=== PATIENT | female | born 1955 | race Caucasian/White ===

== ENCOUNTER 2021-03-21 12:16 | Day surgery (SDC) | payer BC ==
[~2021-03-21] VITALS: Ht 167.6 cm; Wt 85.5 kg
[2021-03-21] VITALS (8 sets, daily range): BP systolic 139–167; BP diastolic 69–98
--- NOTE | 2021-03-21 13:37 | NUR ---
Patient seen and assessed by provider. Patient will be transfered to short stay for out patient procedure to room 316A.
[2021-03-21] MEDS ORDERED: heparin 1,000unit/ml 10ml vial 10 ML ONE (14:25)
[2021-03-21] MEDS ORDERED: midazolam 1 mg/ML 2ml injection ONE (14:26)
[2021-03-21] MEDS ORDERED: LIDOcaine 1%/PF 5ML 10 MG/ML VIAL ONE (14:26)
[2021-03-21] MEDS ORDERED: fentaNYL/PF 50MCG/1 ML 2ML syringe ONE (14:26)
[2021-03-21] MEDS ORDERED: LANTUS SQ (14:40)
[2021-03-21] MEDS ORDERED: AMLO10TA48 PO (14:40)
[2021-03-21] MEDS ORDERED: VANC1VIA35 IV (14:40)
[2021-03-21] MEDS ORDERED: HYDR-4069 PO (14:40)
[2021-03-21] MEDS ORDERED: ATOR40TA PO (14:40)
[2021-03-21] MEDS ORDERED: POLY119P2 PO (14:40)
[2021-03-21] MEDS ORDERED: CEFE2FRO IV (14:40)
--- NOTE | 2021-03-21 17:20 | NUR ---
CALLED JOANNA TO GIVE PATIENT REPORT TO RECEIVING NURSE, UNABLE TO LOCATE PER BLACK TOPPER, REPORT GIVEN TO BLACK TOPPER WITH CALL BACK NUMBER IF QUESTIONS CAME UP .
--- NOTE | 2021-03-21 18:20 | NUR ---
CALLED AND SPOKE WITH [employer] PARTNER (HAYDEE) WITH [facility], PATIENT PLACED ON SCHEDULE FOR [facility] FROM HOSPITAL TO TRANSFER TO [facility].
--- NOTE | 2021-03-21 19:00 | NUR ---
CALLED AND SPOKE WITH [facility] TO INQUIRE ABOUT CAR HOSTLER TIME. PATIENT TO BE PICKED UP AT 1999 FOR TRANSFER TO [facility].
--- NOTE | 2021-03-21 19:05 | NUR ---
[facility] CALLED TO CANCEL TRANSPORTATION TO [facility], [facility] IS ALREADY SCHEDULED TO TRANSFER. THIS INFORMATION RELAYED TO NURSING DRAWER LINER, JEFFREY WALKER
--- NOTE | 2021-03-21 20:00 | NUR ---
PATIENT PICKED UP BY [facility] FOR TRANSPORTATION TO [facility]
== END 2021-03-21 20:00 ==
LOC: ER 12:17 → MED 3N 13:30 → SSTAY O 13:30
PROVIDERS: ATTEND Radiology Diagnostic Radiology
DX: E11.22 Type 2 diabetes mellitus with diabetic chronic kidney disease (principal); I12.0 Hypertensive chronic kidney disease with stage 5 chronic kidney disease or end stage renal disease; N18.6 End stage renal disease; E78.00 Pure hypercholesterolemia, unspecified; F32.9 Major depressive disorder, single episode, unspecified; M19.90 Unspecified osteoarthritis, unspecified site; M86.8X7 Other osteomyelitis, ankle and foot; Z88.0 Allergy status to penicillin; Z79.4 Long term (current) use of insulin; Z79.899 Other long term (current) drug therapy
CPT/HCPCS: 36558; 76937; 77001; 99152; 99153; 99285; C1750; C1769; C1894; J1644; J2250; J3010; A9270

== ENCOUNTER 2021-03-22 23:22 | Inpatient (IN) | payer BC ==
[~2021-03-22] VITALS: Ht 165.1 cm; Wt 118.2 kg
[~2021-03-22 23:22] MED LIST: AMLO10TA48 PO; ATOR40TA PO; CEFE2FRO IV; HYDR-4069 PO; LANTUS SQ; POLY119P2 PO; VANC1VIA35 IV
[2021-03-22] MEDS ORDERED: iohexol 350MG/ML 100ml bottle IV ONE (23:32)
[2021-03-22 23:50] LABS: BASOPHILS # (AUTO) 0.1 X10'3 (0-0.2); BASOPHILS % (AUTO) 0.8 % (0-1); EOSINOPHILS # (AUTO) 0.6 X10'3 (0-0.9); EOSINOPHILS % (AUTO) 6.2 % (0-6); HEMATOCRIT 30.2 % (35.0-45.0); HEMOGLOBIN 9.8 g/dl (12.0-16.0); LYMPHOCYTES % (AUTO) 10.2 % (21-51); MEAN CORPUSCULAR HEMOGLOBIN 28.4 PG (27.0-31.0); MEAN CORPUSCULAR HGB CONC 32.5 g/dL (33.0-36.5); MEAN CORPUSCULAR VOLUME 87.4 FL (78-98); MEAN PLATELET VOLUME 8.4 FL (7.4-10.4); MONOCYTES # (AUTO) 1.1 X10'3 (0-0.9); MONOCYTES % (AUTO) 10.7 % (2-12); NEUTROPHILS # (AUTO) 7.3 X10'3 (1.8-7.7); NEUTROPHILS % (AUTO) 72.1 % (42-75); PLATELET COUNT 315 X10'3 (140-440); RED BLOOD COUNT 3.46 X10'6 (4.20-5.60); WHITE BLOOD COUNT 10.2 X10'3 (4.5-11.0)
[2021-03-22 23:52] LABS: ALANINE AMINOTRANSFERASE 15 U/L (12-78); ALBUMIN 1.9 G/DL (3.4-5.0); ALBUMIN/GLOBULIN RATIO 0.4 (1.1-1.5); ALKALINE PHOSPHATASE 144 IU/L (46-116); ANION GAP 7 (8-16); ASPARTATE AMINO TRANSFERASE 13 U/L (10-37); BILIRUBIN,TOTAL 0.3 MG/DL (0.1-1.0); BLOOD UREA NITROGEN 42 MG/DL (7-18); BUN/CREATININE RATIO 9.7 (6.6-38.0); CALCIUM 8.6 MG/DL (8.5-10.1); CHLORIDE 109 MMOL/L (99-107); CREATININE 4.34 MG/DL (0.40-0.90); GLUCOSE 179 MG/DL (70-104); POTASSIUM 3.8 MMOL/L (3.5-5.1); SODIUM 144 MMOL/L (135-145); TOTAL CARBON DIOXIDE 27.7 MMOL/L (24-32); TOTAL PROTEIN 6.7 G/DL (6.4-8.2); eGFR 10 ML/MIN
[2021-03-23] MEDS ORDERED: magnesium hydroxide 30ml (MOM) UD suspension PO PRN (00:50)
[2021-03-23] MEDS ORDERED: bisacodyl 10mg suppository rectal RC PRN (00:50)
[2021-03-23] MEDS ORDERED: acetaminophen 325mg tablet PO PRN ×2 (00:50)
[2021-03-23] MEDS ORDERED: HYDROcodone/acetaminophen 5mg/325mg tablet PO PRN (00:50)
[2021-03-23] MEDS ORDERED: morphine 2 MG/ML inj. syringe IV PRN ×2 (00:50)
[2021-03-23] MEDS ORDERED: diphenhydrAMINE 25mg capsule PO PRN (00:50)
[2021-03-23] MEDS ORDERED: mag hydrox/Alum hydrox/simeth 30ml oral suspension PO PRN (00:50)
[2021-03-23] MEDS ORDERED: acetaminophen 650mg rectal suppository RC PRN (00:50)
[2021-03-23] MEDS ORDERED: ondansetron 4mg rapidly disintigrating tab PO PRN (00:50)
[2021-03-23] MEDS ORDERED: HYDROmorphone inj. 0.5 MG/0.5 ML DISP.SYRIN IV PRN (00:50)
[2021-03-23] MEDS ORDERED: HYDROcodone/acetaminophen 10/325mg tab PO PRN (00:50)
[2021-03-23] MEDS ORDERED: ondansetron/PF 4mg/2ml inj IV PRN (00:50)
[2021-03-23] MEDS ORDERED: glucagon, human recombinant 1mg kit SUBCUT PRN (00:55)
[2021-03-23] MEDS ORDERED: MESSAGE TO PHARMACY PO ONE (00:55)
[2021-03-23] MEDS ORDERED: dextrose 50%-water 50ml dispensing syringe IV PRN ×2 (00:55)
[2021-03-23] MEDS ORDERED: dextrose ORAL solution 15 GM/59 ML bottle PO PRN ×2 (00:55)
[2021-03-23 01:10] LABS: C-REACTIVE PROTEIN 9.47 MG/DL (0.0-0.5); FERRITIN 262 NG/ML (8-252); LACTATE DEHYDROGENASE 293 U/L (81-234)
[2021-03-23 01:53] LABS: PARTIAL THROMBOPLASTIN TIME 30 SECONDS (22-32)
[2021-03-23] MEDS: normal saline 1000ml 1,000 ML IV SCH (01:57)
[2021-03-23] MEDS ORDERED: hydrALAZINE 20mg/ml inj. IV PRN (02:00)
[2021-03-23 02:05] LABS: HEMOGLOBIN A1C 7.9 % (4.5-6.2)
[2021-03-23 02:19] LABS: CLARITY,URINE SLIGHTLY CLOUDY (Clear); COLOR,URINE YELLOW (Yellow); UA COLLECTION TYPE FOLEY CATH
[2021-03-23 02:20] LABS: GLUCOSE, URINE 100 mg/dl (Neg); KETONES,URINE NEGATIVE (Neg); PROTEIN,URINE >=1000 mg/dl (Neg)
[2021-03-23 02:21] LABS: LEUKOCYTE ESTERASE ,URINE SMALL (Neg); NITRITES, URINE NEGATIVE (Neg); OCCULT BLOOD,URINE TRACE-LYSED (Neg); UROBILINOGEN,URINE 0.2 E.U/dL (0.2-1.0)
[2021-03-23 02:25] LABS: RBC,URINE 0-2 /HPF (0-2); WBC,URINE TNTC /HPF (0-4)
[2021-03-23 02:26] LABS: BACTERIA,URINE NONE SEEN /HPF (Neg); SQUAMOUS EPITHELIAL CELL,UR NONE SEEN /LPF (FEW)
[2021-03-23] MEDS ORDERED: piperacillin/tazo 3.375gm/50ml 50 ML IV ONE (04:50)
[2021-03-23] MEDS ORDERED: vancomycin/NS 1 GM ADD-VANTAGE 250 ML IV ONE (04:50)
[2021-03-23] MEDS ORDERED: LIDOcaine 2% 10ml TOPICAL JELLY (Urojet) TP ONE (05:35)
[2021-03-23] MEDS: heparin, porcine 5000 units/ml vial SQ SCH ×2 (08:06→16:00)
[2021-03-23] MEDS: pantoprazole 40mg Tablet.DR PO SCH (08:13)
[2021-03-23] MEDS: docusate sod 100mg capsule PO SCH ×2 (08:14→20:32)
[2021-03-23] MEDS: CefTRIAXone/D5W-Rocephin 1gm 50 ML IV SCH ×2 (08:15→20:30)
[2021-03-23] MEDS ORDERED: potassium Cl 20 mEq SR tablet PO PRN ×2 (08:45)
[2021-03-23] MEDS ORDERED: magnesium 4gm in 100ml NS 100 ML IV PRN (08:45)
[2021-03-23] MEDS ORDERED: potassium Cl 40MEQ/1/2NS 520ml 520 ML IV PRN (08:45)
[2021-03-23] MEDS ORDERED: magnesium Cl slow-release 64mg tablet PO PRN (08:45)
[2021-03-23] MEDS: azithromycin/NS 500mg/250ml 250 ML IV SCH (09:07)
[2021-03-23] MEDS ORDERED: LORA10TA7 PO (10:15)
[2021-03-23] MEDS ORDERED: HYDR-3965 PO (10:15)
[2021-03-23] MEDS ORDERED: GABA300C PO (10:15)
[2021-03-23] MEDS ORDERED: ALBU18HF2 INH (10:15)
[2021-03-23] MEDS ORDERED: DIPH25TA27 PO (10:15)
[2021-03-23] MEDS ORDERED: PRAM177L28 TP (10:15)
[2021-03-23] MEDS ORDERED: DOCU100C40 PO (10:15)
[2021-03-23] MEDS ORDERED: INSU100V11 SQ (10:15)
[2021-03-23] MEDS ORDERED: SODIUM BICARB (10:15)
[2021-03-23] MEDS ORDERED: ONDA4TAB12 PO (10:15)
[2021-03-23] MEDS ORDERED: normal saline 1000ml 250 ML IV PRN (10:55)
[2021-03-23] MEDS ORDERED: EPOETIN ALFA-EPBX 20,000 UNIT/ML 1 ML MDV IV ONE (10:55)
[2021-03-23] MEDS ORDERED: heparin 1,000unit/ml 10ml vial 10 ML IV ONE (10:55)
[2021-03-23] MEDS ORDERED: heparin 1,000 units/ml 10ml inj HE ONE ×2 (11:00)
--- NOTE | 2021-03-23 13:46 | NUR ---
BREAK RN NOTES: VITAL SIGNS RECHECKED,CALL LIGHT WITHIN REACH,DENIES DISCOMFORT.
--- NOTE | 2021-03-23 14:46 | NUR ---
Patient in room ED 14. I have received report from JEFFREY Walters and had the opportunity to ask questions. Awaiting patient arrival on unit to assume patient care.
[2021-03-23 15:35] LABS: HEMATOCRIT 29.8 % (35.0-45.0); HEMOGLOBIN 9.8 g/dl (12.0-16.0); MEAN CORPUSCULAR HEMOGLOBIN 28.3 PG (27.0-31.0); MEAN CORPUSCULAR HGB CONC 32.8 g/dL (33.0-36.5); MEAN CORPUSCULAR VOLUME 86.3 FL (78-98); MEAN PLATELET VOLUME 8.1 FL (7.4-10.4); PLATELET COUNT 313 X10'3 (140-440); RED BLOOD COUNT 3.45 X10'6 (4.20-5.60); RED CELL DISTRIBUTION WIDTH 18.1 % (11.5-14.5); WHITE BLOOD COUNT 9.3 X10'3 (4.5-11.0)
[2021-03-23 18:00] VITALS: BP 156/71
--- NOTE | 2021-03-23 18:44 | NUR ---
Patient in room PCU 3020. I have received report from LYUDMILA MURPHY and had the opportunity to ask questions and assume patient care. Addendum: 03/23/21 at 1844 by Linda Mcdaniel RN Amended: Links added.
--- NOTE | 2021-03-23 18:44 | NUR ---
Problems reprioritized. Patient report given, questions answered & plan of care reviewed with Linda MURPHY.
[2021-03-23] MEDS: K and/or MAG REPLACEMENT MC SCH (20:00)
--- NOTE | 2021-03-23 20:10 | NUR ---
DIALYSIS COMPLETED PER rN. PT TOLERATED WELL. DROWSY, NO COMPLAINTS AT THIS TIME.
[2021-03-23] MEDS: lactobacillus rhamnosus 10,000 MMU CELLS/CAPSULE PO SCH (20:33)
[2021-03-23] MEDS ORDERED: temazepam 15mg capsule PO PRN (21:00)
[2021-03-23] MEDS: insulin glargine (Lantus) pen - multi-dose SQ SCH (21:04)
[2021-03-23 22:00] VITALS: BP 170/77
[2021-03-24] MEDS: heparin, porcine 5000 units/ml vial SQ SCH ×4 (01:14→23:25)
[2021-03-24 02:00] VITALS: BP 147/68
[2021-03-24 06:00] VITALS: BP 178/83
--- NOTE | 2021-03-24 06:37 | NUR ---
Problems reprioritized. Patient report given, questions answered & plan of care reviewed with LYUDMILA MURPHY. Addendum: 03/24/21 at 0638 by Linda Mcdaniel RN Amended: Links added.
--- NOTE | 2021-03-24 06:38 | NUR ---
Patient in room PCU 3020. I have received report from JEFFREY Mckeon and had the opportunity to ask questions and assume patient care.
[2021-03-24] MEDS: K and/or MAG REPLACEMENT MC SCH ×2 (08:00→20:00)
[2021-03-24] MEDS: docusate sod 100mg capsule PO SCH ×3 (08:00→20:59)
[2021-03-24 08:09] LABS: BASOPHILS % (AUTO) 0.4 % (0-1); EOSINOPHILS # (AUTO) 0.8 X10'3 (0-0.9); EOSINOPHILS % (AUTO) 6.4 % (0-6); HEMATOCRIT 32.2 % (35.0-45.0); HEMOGLOBIN 10.4 g/dl (12.0-16.0); LYMPHOCYTES # (AUTO) 1.5 X10'3 (1.1-4.8); LYMPHOCYTES % (AUTO) 11.3 % (21-51); MEAN CORPUSCULAR HEMOGLOBIN 28.1 PG (27.0-31.0); MEAN CORPUSCULAR HGB CONC 32.3 g/dL (33.0-36.5); MEAN PLATELET VOLUME 8.4 FL (7.4-10.4); MONOCYTES # (AUTO) 0.8 X10'3 (0-0.9); MONOCYTES % (AUTO) 5.8 % (2-12); NEUTROPHILS % (AUTO) 76.1 % (42-75); PLATELET COUNT 371 X10'3 (140-440); RED CELL DISTRIBUTION WIDTH 18.1 % (11.5-14.5); WHITE BLOOD COUNT 13.2 X10'3 (4.5-11.0)
[2021-03-24] MEDS: azithromycin/NS 500mg/250ml 250 ML IV SCH (08:11)
[2021-03-24] MEDS: CefTRIAXone/D5W-Rocephin 1gm 50 ML IV SCH (08:11)
[2021-03-24] MEDS: lactobacillus rhamnosus 10,000 MMU CELLS/CAPSULE PO SCH ×2 (08:12→21:00)
[2021-03-24] MEDS: pantoprazole 40mg Tablet.DR PO SCH (08:12)
[2021-03-24 08:21] LABS: ALANINE AMINOTRANSFERASE 15 U/L (12-78); ALBUMIN 1.8 G/DL (3.4-5.0); ALBUMIN/GLOBULIN RATIO 0.4 (1.1-1.5); ALKALINE PHOSPHATASE 155 IU/L (46-116); ANION GAP 9 (8-16); ASPARTATE AMINO TRANSFERASE 15 U/L (10-37); BILIRUBIN,TOTAL 0.3 MG/DL (0.1-1.0); BLOOD UREA NITROGEN 32 MG/DL (7-18); BUN/CREATININE RATIO 8.1 (6.6-38.0); C-REACTIVE PROTEIN 11.07 MG/DL (0.0-0.5); CALCIUM 8.7 MG/DL (8.5-10.1); CHLORIDE 107 MMOL/L (99-107); CHOL/HDL RATIO 2.7 (0.00-4.99); CHOLESTEROL 130 MG/DL (0-200); CREATININE 3.96 MG/DL (0.40-0.90); GLUCOSE 107 MG/DL (70-104); HDL CHOLESTEROL 49 MG/DL (35-60); LDL CHOLESTEROL 50 MG/DL (50-100); MAGNESIUM 1.9 MG/DL (1.5-2.4); PHOSPHORUS 4.6 MG/DL (2.3-4.5); POTASSIUM 4.5 MMOL/L (3.5-5.1); SODIUM 143 MMOL/L (135-145); TOTAL CARBON DIOXIDE 27.4 MMOL/L (24-32); TOTAL PROTEIN 6.8 G/DL (6.4-8.2); TRIGLYCERIDES 150 MG/DL (20-135); eGFR 11 ML/MIN
[2021-03-24 08:24] LABS: D-DIMER 10.01 MG/L FEU (0-0.50)
[2021-03-24] MEDS: insulin Lispro (HumaLOG) vial - multi-dose SQ SCH (08:31)
[2021-03-24] MEDS: diphenhydrAMINE 50 mg/ml inj IV PRN ×2 (08:32→21:02)
--- NOTE | 2021-03-24 10:18 | NUR ---
DM consult: Per consult pt with renal failure and right foot osteomyelitis. Per H&P pt with ESRD on HD, lot porter has been consulted, and pt on abx for osteomyelitis. Pt with T2DM with A1c 7.9%. Pt with ALOC on admit, A/O x 1 and confused per physical assessment. DM education deferred at this time. Pt on a CHO controlled diet documented with 25% PO intake of first meal. Consider assisting with meals in view of ALOC. Will continue to follow closely and monitor need for nutrition intervention pending trends in PO intake. Addendum: 03/24/21 at [address] Amended: Links added.
[2021-03-24] MEDS ORDERED: heparin 1,000unit/ml 10ml vial 10 ML IV ONE (10:25)
[2021-03-24] MEDS ORDERED: normal saline 1000ml 100 ML IV PRN (10:25)
[2021-03-24] MEDS ORDERED: heparin 1,000 units/ml 10ml inj HE ONE ×2 (10:30)
[2021-03-24 11:00] VITALS: BP 163/76
[2021-03-24] MEDS ORDERED: vancomycin 1,000mg inj IV SCH (14:20)
[2021-03-24] MEDS ORDERED: HYDROcodone/acetaminophen 5mg/325mg tablet PO PRN (14:20)
[2021-03-24] MEDS: gabapentin 300mg capsule PO SCH (14:20)
[2021-03-24] MEDS ORDERED: SODIUM BICARB SCH (14:20)
[2021-03-24] MEDS ORDERED: ZINC ACETATE TP PRN (14:20)
[2021-03-24] MEDS ORDERED: PRAMOXINE HCL TP PRN (14:20)
[2021-03-24] MEDS ORDERED: cefepime 2,000MG/100 ML NS ADD-VANTAGE IV SCH (14:20)
[2021-03-24] MEDS ORDERED: albuterol 2.5 MG/3 ML nebule NEB PRN (14:35)
[2021-03-24] MEDS ORDERED: diphenhydrAMINE 25mg capsule PO PRN (14:45)
[2021-03-24 15:00] VITALS: BP 162/65
[2021-03-24] MEDS ORDERED: vancomycin/NS 1 GM ADD-VANTAGE 250 ML X 1 DOSE IV PRN (15:00)
[2021-03-24] MEDS: amLODIPine 5mg tablet PO SCH (15:39)
[2021-03-24] MEDS: polyethylene glycol 3350 17gm powd pack PO SCH ×2 (16:00→23:29)
[2021-03-24] MEDS: cefepime 2g/NS 100ml ADVANTAGE 100 ML IV SCH ×2 (17:06→20:56)
[2021-03-24] MEDS: hydrALAZINE 25 MG tablet PO SCH ×2 (17:09→23:24)
[2021-03-24 18:00] VITALS: BP 134/71
--- NOTE | 2021-03-24 18:21 | NUR ---
Patient in room PCU 3020. I have received report from LYUDMILA MURPHY and had the opportunity to ask questions and assume patient care. Addendum: 03/24/21 at 1822 by Linda Mcdaniel RN Amended: Links added.
--- NOTE | 2021-03-24 18:27 | NUR ---
Problems reprioritized. Patient report given, questions answered & plan of care reviewed with Linda MURPHY.
[2021-03-24] MEDS: atorvastatin 20mg tablet PO SCH (20:59)
[2021-03-24] MEDS: loratadine 10mg tablet PO PRN (21:00)
--- NOTE | 2021-03-24 21:15 | NUR ---
wound care done therahoney alginate and Optifoam to sites after cleaning wounds and pictures done. pt tolerated well.
[2021-03-24] MEDS: insulin glargine (Lantus) pen - multi-dose SQ SCH (21:40)
[2021-03-24 22:00] VITALS: BP 160/71
[2021-03-25] MEDS: normal saline 1000ml 1,000 ML IV SCH (00:50)
[2021-03-25 02:00] VITALS: BP 151/68
--- NOTE | 2021-03-25 02:55 | NUR ---
RESTING EYES CLOSED WITHOUT S&S OF DISTRESS.
[2021-03-25] MEDS: VANCOMYCIN LEVEL IV SCH (03:00)
[2021-03-25 06:00] VITALS: BP 174/79
--- NOTE | 2021-03-25 06:30 | NUR ---
Problems reprioritized. Patient report given, questions answered & plan of care reviewed with JEFFREY HERNANDEZ. Addendum: 03/25/21 at 0631 by Linda Mcdaniel RN Amended: Links added.
[2021-03-25 06:40] LABS: BASOPHILS # (AUTO) 0.1 X10'3 (0-0.2); HEMOGLOBIN 9.5 g/dl (12.0-16.0); LYMPHOCYTES # (AUTO) 1.3 X10'3 (1.1-4.8); MEAN CORPUSCULAR VOLUME 89.3 FL (78-98); MONOCYTES # (AUTO) 1.1 X10'3 (0-0.9)
[2021-03-25 07:08] LABS: D-DIMER 5.44 MG/L FEU (0-0.50)
[2021-03-25 07:11] LABS: ALANINE AMINOTRANSFERASE 11 U/L (12-78); ALBUMIN 1.9 G/DL (3.4-5.0); ALBUMIN/GLOBULIN RATIO 0.4 (1.1-1.5); ALKALINE PHOSPHATASE 147 IU/L (46-116); ANION GAP 12 (8-16); ASPARTATE AMINO TRANSFERASE 16 U/L (10-37); BILIRUBIN,TOTAL 0.3 MG/DL (0.1-1.0); BLOOD UREA NITROGEN 28 MG/DL (7-18); BUN/CREATININE RATIO 7.6 (6.6-38.0); C-REACTIVE PROTEIN 7.39 MG/DL (0.0-0.5); CALCIUM 8.4 MG/DL (8.5-10.1); CHLORIDE 107 MMOL/L (99-107); CREATININE 3.68 MG/DL (0.40-0.90); GLUCOSE 138 MG/DL (70-104); MAGNESIUM 2.2 MG/DL (1.5-2.4); PHOSPHORUS 3.9 MG/DL (2.3-4.5); POTASSIUM 3.8 MMOL/L (3.5-5.1); SODIUM 146 MMOL/L (135-145); TOTAL CARBON DIOXIDE 26.9 MMOL/L (24-32); TOTAL PROTEIN 6.7 G/DL (6.4-8.2); VANCOMYCIN,RANDOM 16.7 UG/ML; eGFR 12 ML/MIN
--- NOTE | 2021-03-25 07:11 | NUR ---
Patient in room PCU 3020. I have received report from Linda MURPHY and had the opportunity to ask questions and assume patient care.
[2021-03-25 07:18] LABS: BASOPHILS % (AUTO) 0.7 % (0-1); EOSINOPHILS % (AUTO) 9.9 % (0-6); HEMATOCRIT 30.2 % (35.0-45.0); LYMPHOCYTES % (AUTO) 12.2 % (21-51); MEAN CORPUSCULAR HEMOGLOBIN 28.2 PG (27.0-31.0); MEAN CORPUSCULAR HGB CONC 31.6 g/dL (33.0-36.5); MEAN PLATELET VOLUME 9.1 FL (7.4-10.4); MONOCYTES % (AUTO) 10.7 % (2-12); NEUTROPHILS # (AUTO) 6.8 X10'3 (1.8-7.7); NEUTROPHILS % (AUTO) 66.5 % (42-75); PLATELET COUNT 301 X10'3 (140-440); RED BLOOD COUNT 3.38 X10'6 (4.20-5.60); WHITE BLOOD COUNT 10.3 X10'3 (4.5-11.0)
[2021-03-25] MEDS: K and/or MAG REPLACEMENT MC SCH ×2 (08:00→20:00)
[2021-03-25] MEDS: polyethylene glycol 3350 17gm powd pack PO SCH ×5 (08:00→17:19)
[2021-03-25] MEDS: docusate sod 100mg capsule PO SCH ×4 (08:00→20:19)
[2021-03-25] MEDS: cefepime 2g/NS 100ml ADVANTAGE 100 ML IV SCH ×2 (08:13→20:26)
[2021-03-25] MEDS: heparin, porcine 5000 units/ml vial SQ SCH ×2 (08:15→17:16)
[2021-03-25] MEDS: pantoprazole 40mg Tablet.DR PO SCH (08:15)
[2021-03-25] MEDS: hydrALAZINE 25 MG tablet PO SCH ×2 (08:16→17:16)
[2021-03-25] MEDS: amLODIPine 5mg tablet PO SCH (08:16)
[2021-03-25] MEDS: gabapentin 300mg capsule PO SCH (08:17)
[2021-03-25] MEDS: lactobacillus rhamnosus 10,000 MMU CELLS/CAPSULE PO SCH ×2 (08:17→20:18)
[2021-03-25] MEDS: azithromycin/NS 500mg/250ml 250 ML IV SCH (09:22)
[2021-03-25] MEDS: insulin Lispro (HumaLOG) vial - multi-dose SQ SCH ×2 (09:22→14:18)
[2021-03-25] MEDS ORDERED: heparin 1,000 units/ml 10ml inj IV ONE ×2 (10:40)
[2021-03-25] MEDS ORDERED: heparin 1,000 units/ml 10ml inj HE ONE (10:40)
[2021-03-25 11:00] VITALS: BP 154/64
[2021-03-25] MEDS ORDERED: iohexol 350MG/ML 100ml bottle IV ONE (12:41)
[2021-03-25 15:00] VITALS: BP 158/65
[2021-03-25 18:00] VITALS: BP 118/67
--- NOTE | 2021-03-25 18:35 | NUR ---
Patient in room PCU 3020. I have received report from DAVID MURPHY and had the opportunity to ask questions and assume patient care. Addendum: 03/25/21 at 1835 by Linda Mcdaniel RN Amended: Links added.
[2021-03-25] MEDS: atorvastatin 20mg tablet PO SCH (20:18)
[2021-03-25] MEDS: loratadine 10mg tablet PO PRN (20:19)
--- NOTE | 2021-03-25 20:27 | NUR ---
med with mom for constipation no bm since
[2021-03-25] MEDS: insulin glargine (Lantus) pen - multi-dose SQ SCH (20:44)
--- NOTE | 2021-03-26 | NUR ---
iv abx infusing only have one line not able to get a second line in. at completion will start heparin drip.
[2021-03-26] MEDS: polyethylene glycol 3350 17gm powd pack PO SCH ×3 (00:32→16:00)
[2021-03-26] MEDS: hydrALAZINE 25 MG tablet PO SCH ×3 (00:33→16:00)
[2021-03-26] MEDS: heparin, porcine 5000 units/ml vial SQ SCH ×2 (00:35→09:09)
--- NOTE | 2021-03-26 00:55 | NUR ---
PT ASSISTED UP TO BEDSIDE COMMODE FOR BM. HAIR COMBED AND HAIR TIES GIVEN TO HER.
--- NOTE | 2021-03-26 01:20 | NUR ---
PT HAD NO RESULTS ASSISTED UP AND BACK TO BED USING WALKER. PT TOLERATED FAIR. WARM DECAF TEA GIVEN TO HER.
[2021-03-26] MEDS: VANCOMYCIN LEVEL IV SCH (03:00)
[2021-03-26 06:00] VITALS: BP 174/78
--- NOTE | 2021-03-26 06:24 | NUR ---
Problems reprioritized. Patient report given, questions answered & plan of care reviewed with DAVID MURPHY. Addendum: 03/26/21 at 0624 by Lidna Mcdaniel RN Amended: Links added.
[2021-03-26 07:32] LABS: BASOPHILS % (AUTO) 0.3 % (0-1); EOSINOPHILS # (AUTO) 0.8 X10'3 (0-0.9); EOSINOPHILS % (AUTO) 9.9 % (0-6); HEMATOCRIT 28.8 % (35.0-45.0); HEMOGLOBIN 9.3 g/dl (12.0-16.0); LYMPHOCYTES # (AUTO) 1.4 X10'3 (1.1-4.8); LYMPHOCYTES % (AUTO) 16.2 % (21-51); MEAN CORPUSCULAR HGB CONC 32.1 g/dL (33.0-36.5); MEAN CORPUSCULAR VOLUME 87.2 FL (78-98); MEAN PLATELET VOLUME 8.7 FL (7.4-10.4); MONOCYTES # (AUTO) 0.9 X10'3 (0-0.9); MONOCYTES % (AUTO) 10.2 % (2-12); NEUTROPHILS # (AUTO) 5.4 X10'3 (1.8-7.7); NEUTROPHILS % (AUTO) 63.4 % (42-75); PLATELET COUNT 309 X10'3 (140-440); RED CELL DISTRIBUTION WIDTH 18.1 % (11.5-14.5); WHITE BLOOD COUNT 8.6 X10'3 (4.5-11.0)
[2021-03-26 07:33] LABS: D-DIMER 2.16 MG/L FEU (0-0.50)
[2021-03-26] MEDS: gabapentin 300mg capsule PO SCH (08:00)
[2021-03-26] MEDS: docusate sod 100mg capsule PO SCH ×3 (08:00→21:50)
[2021-03-26] MEDS: K and/or MAG REPLACEMENT MC SCH ×2 (08:00→20:00)
[2021-03-26 08:07] LABS: ALANINE AMINOTRANSFERASE 13 U/L (12-78); ALBUMIN/GLOBULIN RATIO 0.4 (1.1-1.5); ALKALINE PHOSPHATASE 131 IU/L (46-116); ANION GAP 14 (8-16); ASPARTATE AMINO TRANSFERASE 14 U/L (10-37); BILIRUBIN,TOTAL 0.3 MG/DL (0.1-1.0); BLOOD UREA NITROGEN 32 MG/DL (7-18); BUN/CREATININE RATIO 7.9 (6.6-38.0); C-REACTIVE PROTEIN 5.12 MG/DL (0.0-0.5); CALCIUM 8.6 MG/DL (8.5-10.1); CHLORIDE 106 MMOL/L (99-107); CREATININE 4.05 MG/DL (0.40-0.90); GLUCOSE 135 MG/DL (70-104); MAGNESIUM 2.1 MG/DL (1.5-2.4); PHOSPHORUS 4.7 MG/DL (2.3-4.5); POTASSIUM 3.8 MMOL/L (3.5-5.1); SODIUM 145 MMOL/L (135-145); TOTAL PROTEIN 6.8 G/DL (6.4-8.2); eGFR 11 ML/MIN
[2021-03-26] MEDS ORDERED: vancomycin/NS 1 GM ADD-VANTAGE 250 ML X 1 DOSE IV ONE (08:35)
[2021-03-26] MEDS: amLODIPine 5mg tablet PO SCH (09:03)
[2021-03-26] MEDS: lactobacillus rhamnosus 10,000 MMU CELLS/CAPSULE PO SCH ×3 (09:03→21:54)
[2021-03-26] MEDS: azithromycin 250mg tablet PO SCH (09:06)
[2021-03-26] MEDS: cefepime 2g/NS 100ml ADVANTAGE 100 ML IV SCH ×2 (09:08→20:00)
[2021-03-26] MEDS: pantoprazole 40mg Tablet.DR PO SCH (09:09)
[2021-03-26] MEDS ORDERED: heparin 1,000 units/ml 10ml inj HE ONE (09:15)
[2021-03-26] MEDS: insulin Lispro (HumaLOG) vial - multi-dose SQ SCH ×2 (09:15→15:35)
[2021-03-26 10:36] LABS: ANISOCYTOSIS 2+; PLATELET ESTIMATE NORMAL; TOTAL CELLS COUNTED 100
[2021-03-26 10:37] LABS: POLYCHROMASIA 1+
[2021-03-26 11:00] VITALS: BP 154/74
[2021-03-26 15:00] VITALS: BP 150/71
[2021-03-26 18:00] VITALS: BP 150/68
[2021-03-26] MEDS ORDERED: heparin 10,000 units/1 ML INJ IV ONE (18:30)
--- NOTE | 2021-03-26 18:44 | NUR ---
Patient in room PCU 3020. I have received report from DAVID MURPHY and had the opportunity to ask questions and assume patient care. Addendum: 03/26/21 at 1845 by Linda Mcdaniel RN Amended: Links added.
--- NOTE | 2021-03-26 21:00 | NUR ---
hs care done per pt request assisted up to bedside commode used walker to assist her up. pt transferred fair but weak. assisted back to bed no results.
[2021-03-26] MEDS: insulin glargine (Lantus) pen - multi-dose SQ SCH (21:48)
[2021-03-26] MEDS: atorvastatin 20mg tablet PO SCH ×2 (21:49→21:54)
[2021-03-26] MEDS: loratadine 10mg tablet PO PRN ×2 (21:49→21:53)
[2021-03-26 22:00] VITALS: BP 158/68
--- NOTE | 2021-03-27 00:45 | NUR ---
abx completing infusion and heparin drip set up and observed by Sydney Cheatham Rn. then infusion started.
[2021-03-27] MEDS: heparin 25,000 UNIT/250ml bag 250 ML IV SCH ×3 (00:52→19:30)
[2021-03-27] MEDS: hydrALAZINE 25 MG tablet PO SCH ×3 (01:06→15:24)
[2021-03-27] MEDS: normal saline 1000ml 1,000 ML IV SCH (01:22)
[2021-03-27] MEDS: VANCOMYCIN LEVEL IV SCH (03:00)
--- NOTE | 2021-03-27 05:43 | NUR ---
pt resting and only has a single lumen picc line that heparin is infusing in.
--- NOTE | 2021-03-27 06:33 | NUR ---
Problems reprioritized. Patient report given, questions answered & plan of care reviewed with JEFFREY CHAUHAN. Addendum: 03/27/21 at 0633 by Linda Mcdaniel RN Amended: Links added.
--- NOTE | 2021-03-27 06:52 | NUR ---
Patient in room PCU 3020. I have received report from JEFFREY Mckeon and had the opportunity to ask questions and assume patient care. Patient awake in bed and in no acute distress.
[2021-03-27 07:00] VITALS: BP 157/63
[2021-03-27 07:41] LABS: BASOPHILS # (AUTO) 0.1 X10'3 (0-0.2); BASOPHILS % (AUTO) 1.1 % (0-1); EOSINOPHILS # (AUTO) 0.9 X10'3 (0-0.9); EOSINOPHILS % (AUTO) 10.1 % (0-6); HEMATOCRIT 29.6 % (35.0-45.0); HEMOGLOBIN 9.6 g/dl (12.0-16.0); LYMPHOCYTES # (AUTO) 1.1 X10'3 (1.1-4.8); LYMPHOCYTES % (AUTO) 12.5 % (21-51); MEAN CORPUSCULAR HEMOGLOBIN 28.4 PG (27.0-31.0); MEAN CORPUSCULAR HGB CONC 32.3 g/dL (33.0-36.5); MEAN CORPUSCULAR VOLUME 87.8 FL (78-98); MEAN PLATELET VOLUME 8.4 FL (7.4-10.4); MONOCYTES # (AUTO) 1.1 X10'3 (0-0.9); MONOCYTES % (AUTO) 12.7 % (2-12); NEUTROPHILS # (AUTO) 5.4 X10'3 (1.8-7.7); NEUTROPHILS % (AUTO) 63.6 % (42-75); PLATELET COUNT 284 X10'3 (140-440); RED BLOOD COUNT 3.37 X10'6 (4.20-5.60); RED CELL DISTRIBUTION WIDTH 17.6 % (11.5-14.5); WHITE BLOOD COUNT 8.5 X10'3 (4.5-11.0)
[2021-03-27 07:50] LABS: D-DIMER 2.32 MG/L FEU (0-0.50)
[2021-03-27 07:54] LABS: ALANINE AMINOTRANSFERASE 11 U/L (12-78); ALBUMIN 2.1 G/DL (3.4-5.0); ALBUMIN/GLOBULIN RATIO 0.4 (1.1-1.5); ALKALINE PHOSPHATASE 143 IU/L (46-116); ANION GAP 10 (8-16); ASPARTATE AMINO TRANSFERASE 15 U/L (10-37); BILIRUBIN,TOTAL 0.4 MG/DL (0.1-1.0); BLOOD UREA NITROGEN 21 MG/DL (7-18); BUN/CREATININE RATIO 6.3 (6.6-38.0); C-REACTIVE PROTEIN 4.59 MG/DL (0.0-0.5); CALCIUM 8.7 MG/DL (8.5-10.1); CHLORIDE 106 MMOL/L (99-107); CREATININE 3.32 MG/DL (0.40-0.90); GLUCOSE 162 MG/DL (70-104); MAGNESIUM 2.1 MG/DL (1.5-2.4); PHOSPHORUS 3.8 MG/DL (2.3-4.5); POTASSIUM 3.8 MMOL/L (3.5-5.1); SODIUM 143 MMOL/L (135-145); TOTAL CARBON DIOXIDE 26.7 MMOL/L (24-32); TOTAL PROTEIN 6.8 G/DL (6.4-8.2); VANCOMYCIN,RANDOM 10.5 UG/ML; eGFR 14 ML/MIN
[2021-03-27] MEDS: polyethylene glycol 3350 17gm powd pack PO SCH ×3 (08:00→15:26)
[2021-03-27] MEDS: gabapentin 300mg capsule PO SCH (08:00)
[2021-03-27] MEDS: K and/or MAG REPLACEMENT MC SCH ×2 (08:00→20:00)
[2021-03-27] MEDS ORDERED: vancomycin/NS 1 GM ADD-VANTAGE 250 ML X 1 DOSE IV ONE (09:00)
[2021-03-27] MEDS: amLODIPine 5mg tablet PO SCH (09:01)
[2021-03-27] MEDS: docusate sod 100mg capsule PO SCH ×2 (09:02→19:35)
[2021-03-27] MEDS: lactobacillus rhamnosus 10,000 MMU CELLS/CAPSULE PO SCH (09:02)
[2021-03-27] MEDS: azithromycin 250mg tablet PO SCH (09:03)
[2021-03-27] MEDS: insulin Lispro (HumaLOG) vial - multi-dose SQ SCH ×3 (09:15→19:35)
[2021-03-27] MEDS: pantoprazole 40mg Tablet.DR PO SCH (09:57)
[2021-03-27] MEDS: heparin 10,000 units/1 ML INJ IV PRN ×2 (10:01→18:57)
[2021-03-27 11:00] VITALS: BP 116/70
[2021-03-27 11:12] LABS: HBSAG SCREEN Negative (Negative)
--- NOTE | 2021-03-27 13:37 | NUR ---
Initial: Per consult pt with renal failure and right foot osteomyelitis. Per H&P pt with ESRD on HD. Pt able to eat well, 100% of meals since 03/25 on Renal CCHO diet meeting needs. LBM 03/25 receiving routine colace. Pt may benefit from Max shake to assist w/ wound healing. Will continue to monitor for additional energy and protein needs while on HD. Pt with T2DM with A1c 7.9%. Pt with ALOC on admit, A/O x 1 and confused per physical assessment. DM education deferred at this time. Recommend: 1) Continue CCHO/Renal diet as tolerated 2) Nelida Santana Shake BID BD for wound healing 3) Bowel care per rx 4) Scaled wts w/ HD Addendum: 03/27/21 at [address] Amended: Links added.
[2021-03-27] MEDS: cefepime 2g/NS 100ml ADVANTAGE 100 ML IV SCH ×2 (13:46→20:00)
[2021-03-27 15:00] VITALS: BP 115/64
[2021-03-27] MEDS ORDERED: JUVEN Shake w/Arg/Glut/Ca2+Bmb (Juven 19.3gm) pkt 240ml PO SCH (17:30)
[2021-03-27 18:00] VITALS: BP 165/74
--- NOTE | 2021-03-27 18:30 | NUR ---
Patient in room PCU 3020. I have received report from Geraldine MURPHY and had the opportunity to ask questions and assume patient care.
--- NOTE | 2021-03-27 18:34 | NUR ---
Problems reprioritized. Patient report given, questions answered & plan of care reviewed with JEFFREY Isabel. Patient stable at transfer of care.
[2021-03-27] MEDS: insulin glargine (Lantus) pen - multi-dose SQ SCH (21:37)
[2021-03-27 22:00] VITALS: BP 152/66
[2021-03-28] MEDS: hydrALAZINE 25 MG tablet PO SCH ×3 (00:44→16:00)
[2021-03-28 01:13] LABS: HEMOGLOBIN 8.7 g/dl (12.0-16.0); WHITE BLOOD COUNT 9.7 X10'3 (4.5-11.0)
[2021-03-28 01:15] LABS: BASOPHILS # (AUTO) 0.1 X10'3 (0-0.2); EOSINOPHILS # (AUTO) 0.9 X10'3 (0-0.9); EOSINOPHILS % (AUTO) 9.6 % (0-6); LYMPHOCYTES # (AUTO) 1.4 X10'3 (1.1-4.8); LYMPHOCYTES % (AUTO) 14.9 % (21-51); MEAN CORPUSCULAR HEMOGLOBIN 28.1 PG (27.0-31.0); MEAN CORPUSCULAR HGB CONC 32.3 g/dL (33.0-36.5); MEAN CORPUSCULAR VOLUME 86.8 FL (78-98); MEAN PLATELET VOLUME 8.5 FL (7.4-10.4); MONOCYTES # (AUTO) 1.1 X10'3 (0-0.9); MONOCYTES % (AUTO) 11.1 % (2-12); NEUTROPHILS # (AUTO) 6.1 X10'3 (1.8-7.7); NEUTROPHILS % (AUTO) 63.4 % (42-75); PLATELET COUNT 250 X10'3 (140-440); RED BLOOD COUNT 3.11 X10'6 (4.20-5.60); RED CELL DISTRIBUTION WIDTH 17.8 % (11.5-14.5)
[2021-03-28 01:32] LABS: ALANINE AMINOTRANSFERASE 13 U/L (12-78); ALBUMIN/GLOBULIN RATIO 0.5 (1.1-1.5); ALKALINE PHOSPHATASE 120 IU/L (46-116); ANION GAP 5 (8-16); ASPARTATE AMINO TRANSFERASE 17 U/L (10-37); BILIRUBIN,TOTAL 0.3 MG/DL (0.1-1.0); BLOOD UREA NITROGEN 26 MG/DL (7-18); BUN/CREATININE RATIO 6.9 (6.6-38.0); C-REACTIVE PROTEIN 3.38 MG/DL (0.0-0.5); CALCIUM 8.2 MG/DL (8.5-10.1); CHLORIDE 104 MMOL/L (99-107); CREATININE 3.75 MG/DL (0.40-0.90); GLUCOSE 172 MG/DL (70-104); PHOSPHORUS 3.7 MG/DL (2.3-4.5); POTASSIUM 3.8 MMOL/L (3.5-5.1); SODIUM 134 MMOL/L (135-145); TOTAL CARBON DIOXIDE 24.8 MMOL/L (24-32); TOTAL PROTEIN 6.4 G/DL (6.4-8.2); VANCOMYCIN,RANDOM 16.7 UG/ML; eGFR 12 ML/MIN
[2021-03-28 01:42] LABS: BANDS% (MANUAL) 2 % (0-10); NEUTROPHILS % (MANUAL) 67 % (42-75); TOTAL CELLS COUNTED 100
[2021-03-28 01:43] LABS: ANISOCYTOSIS 1+; EOSINOPHILS % (MANUAL) 10 % (0-6); LYMPHOCYTES % (MANUAL) 17 % (21-51); METAMYLEOCYTES% (MANUAL) 2 % (0-0); MONOCYTES % (MANUAL) 2 % (2-12); PLATELET ESTIMATE NORMAL
[2021-03-28 01:45] LABS: D-DIMER 1.83 MG/L FEU (0-0.50)
[2021-03-28 02:00] VITALS: BP 139/68
[2021-03-28] MEDS: VANCOMYCIN LEVEL IV SCH (02:22)
--- NOTE | 2021-03-28 03:31 | NUR ---
received critical lab result value PTT of 115. called and notified. held heparin per protocol no new orders
--- NOTE | 2021-03-28 06:42 | NUR ---
Problems reprioritized. Patient report given, questions answered & plan of care reviewed with Dane RN.
[2021-03-28 07:00] VITALS: BP 149/87
[2021-03-28] MEDS: pantoprazole 40mg Tablet.DR PO SCH (07:30)
[2021-03-28] MEDS ORDERED: normal saline 1000ml 250 ML IV PRN (08:00)
[2021-03-28] MEDS: docusate sod 100mg capsule PO SCH ×2 (08:00→20:34)
[2021-03-28] MEDS ORDERED: normal saline 1000ml 100 ML IV PRN (08:00)
[2021-03-28] MEDS: polyethylene glycol 3350 17gm powd pack PO SCH ×3 (08:00→16:00)
[2021-03-28] MEDS ORDERED: EPOETIN ALFA-EPBX 20,000 UNIT/ML 1 ML MDV IV ONE (08:00)
[2021-03-28] MEDS: lactobacillus rhamnosus 10,000 MMU CELLS/CAPSULE PO SCH ×2 (08:00→20:34)
[2021-03-28] MEDS: K and/or MAG REPLACEMENT MC SCH ×2 (08:00→20:00)
[2021-03-28] MEDS: cefepime 2g/NS 100ml ADVANTAGE 100 ML IV SCH ×2 (08:00→21:18)
[2021-03-28] MEDS: amLODIPine 5mg tablet PO SCH (08:00)
[2021-03-28] MEDS: gabapentin 300mg capsule PO SCH (08:00)
[2021-03-28] MEDS ORDERED: heparin 1,000 units/ml 10ml inj HE ONE ×2 (08:00)
[2021-03-28 11:00] VITALS: BP 147/81
[2021-03-28] MEDS: heparin 25,000 UNIT/250ml bag 250 ML IV SCH ×2 (12:16→18:22)
[2021-03-28] MEDS: azithromycin 250mg tablet PO SCH (16:00)
[2021-03-28 18:00] VITALS: BP 138/70
--- NOTE | 2021-03-28 18:30 | NUR ---
Patient in room PCU 3020. I have received report from Isaura RN and had the opportunity to ask questions and assume patient care.
[2021-03-28] MEDS ORDERED: vancomycin/NS 500MG ADD-VANT 100 ML IV ONE (20:00)
[2021-03-28] MEDS: heparin 10,000 units/1 ML INJ IV PRN (20:19)
[2021-03-28] MEDS: atorvastatin 20mg tablet PO SCH (20:34)
[2021-03-28 22:00] VITALS: BP 152/66
[2021-03-28] MEDS: insulin glargine (Lantus) pen - multi-dose SQ SCH (22:20)
[2021-03-29] MEDS: hydrALAZINE 25 MG tablet PO SCH ×3 (00:50→15:17)
[2021-03-29] MEDS: normal saline 1000ml 1,000 ML IV SCH (00:57)
--- NOTE | 2021-03-29 02:00 | NUR ---
pt refused to be woke for 0200 vitals
[2021-03-29] MEDS: VANCOMYCIN LEVEL IV SCH (03:00)
--- NOTE | 2021-03-29 03:29 | NUR ---
Received critical lab value for ptt >139 per heparin protocol md notifed. Held gtt infusion will decrease once restarted
[2021-03-29 06:00] VITALS: BP 163/67
--- NOTE | 2021-03-29 06:00 | NUR ---
Patient in room PCU 3020. I have received report from krissy chen and had the opportunity to ask questions and assume patient care.
--- NOTE | 2021-03-29 06:55 | NUR ---
Problems reprioritized. Patient report given, questions answered & plan of care reviewed with Rui MURPHY.
[2021-03-29] MEDS: pantoprazole 40mg Tablet.DR PO SCH (07:33)
[2021-03-29] MEDS: gabapentin 300mg capsule PO SCH (07:33)
[2021-03-29] MEDS: amLODIPine 5mg tablet PO SCH (07:33)
[2021-03-29] MEDS: azithromycin 250mg tablet PO SCH (07:33)
[2021-03-29] MEDS: lactobacillus rhamnosus 10,000 MMU CELLS/CAPSULE PO SCH (07:33)
[2021-03-29] MEDS: docusate sod 100mg capsule PO SCH (07:34)
[2021-03-29] MEDS: heparin 25,000 UNIT/250ml bag 250 ML IV SCH (07:59)
[2021-03-29] MEDS: polyethylene glycol 3350 17gm powd pack PO SCH ×3 (08:00→16:00)
[2021-03-29] MEDS: K and/or MAG REPLACEMENT MC SCH (08:00)
[2021-03-29] MEDS: insulin Lispro (HumaLOG) vial - multi-dose SQ SCH (09:52)
[2021-03-29 10:44] LABS: BASOPHILS # (AUTO) 0.1 X10'3 (0-0.2); BASOPHILS % (AUTO) 1.4 % (0-1); EOSINOPHILS # (AUTO) 0.8 X10'3 (0-0.9); EOSINOPHILS % (AUTO) 8.2 % (0-6); HEMATOCRIT 30.2 % (35.0-45.0); HEMOGLOBIN 9.4 g/dl (12.0-16.0); LYMPHOCYTES # (AUTO) 1.3 X10'3 (1.1-4.8); LYMPHOCYTES % (AUTO) 12.9 % (21-51); MEAN CORPUSCULAR HEMOGLOBIN 27.8 PG (27.0-31.0); MEAN CORPUSCULAR VOLUME 89.5 FL (78-98); MEAN PLATELET VOLUME 9.3 FL (7.4-10.4); MONOCYTES # (AUTO) 1.2 X10'3 (0-0.9); MONOCYTES % (AUTO) 11.9 % (2-12); NEUTROPHILS # (AUTO) 6.6 X10'3 (1.8-7.7); NEUTROPHILS % (AUTO) 65.6 % (42-75); PLATELET COUNT 237 X10'3 (140-440); RED BLOOD COUNT 3.38 X10'6 (4.20-5.60); RED CELL DISTRIBUTION WIDTH 17.8 % (11.5-14.5)
[2021-03-29 10:49] LABS: ALANINE AMINOTRANSFERASE 12 U/L (12-78); ALBUMIN/GLOBULIN RATIO 0.4 (1.1-1.5); ALKALINE PHOSPHATASE 116 IU/L (46-116); ANION GAP 11 (8-16); ASPARTATE AMINO TRANSFERASE 20 U/L (10-37); BILIRUBIN,TOTAL 0.3 MG/DL (0.1-1.0); BLOOD UREA NITROGEN 17 MG/DL (7-18); CHLORIDE 104 MMOL/L (99-107); CREATININE 2.84 MG/DL (0.40-0.90); GLUCOSE 169 MG/DL (70-104); POTASSIUM 3.9 MMOL/L (3.5-5.1); SODIUM 141 MMOL/L (135-145); TOTAL CARBON DIOXIDE 25.6 MMOL/L (24-32); TOTAL PROTEIN 6.5 G/DL (6.4-8.2); eGFR 17 ML/MIN
[2021-03-29 11:00] VITALS: BP 153/70
[2021-03-29] MEDS: cefepime 2g/NS 100ml ADVANTAGE 100 ML IV SCH (11:04)
[2021-03-29 12:23] LABS: ANISOCYTOSIS 1+; PLATELET ESTIMATE NORMAL; TOTAL CELLS COUNTED 100
[2021-03-29] MEDS ORDERED: enoxaparin 60mg/0.6ml syringe SUBCUT SCH ×2 (12:25→20:00)
--- NOTE | 2021-03-29 13:27 | NUR ---
called report to Ameya Rea RN . Awaiting transport arrival still.
[2021-03-29 15:00] VITALS: BP 165/80
[2021-03-29 15:17] VITALS: BP_SYST 164
--- NOTE | 2021-03-29 17:29 | NUR ---
pt disch now to [facility] via [facility]. PICC SL and FC emptied.pt excited to be going " home to [facility]", no distress vss
[2021-03-29] MEDS ORDERED: NUT.TX.GLUC.INTOLER,LAC-FR,SOY (GLUCERNA) 237 ML PO SCH (17:30)
== END 2021-03-29 17:28 | DRG 175 ==
LOC: ER 23:22 → ED HOLD 03-23 00:48 → UNDOADMIN 03-23 00:48 → ED HOLD 03-23 00:51 → PCU 3S 03-23 15:19
PROVIDERS: ADMIT Family Medicine; ATTEND Family Medicine
PROC: B3251ZZ Computerized Tomography (CT Scan) of Bilateral Common Carotid Arteries using Low Osmolar Contrast (ICD-10-PCS; 2021-03-22)
PROC: B32G1ZZ Computerized Tomography (CT Scan) of Bilateral Vertebral Arteries using Low Osmolar Contrast (ICD-10-PCS; 2021-03-22)
PROC: B32R1ZZ Computerized Tomography (CT Scan) of Intracranial Arteries using Low Osmolar Contrast (ICD-10-PCS; 2021-03-22)
PROC: B3281ZZ Computerized Tomography (CT Scan) of Bilateral Internal Carotid Arteries using Low Osmolar Contrast (ICD-10-PCS; 2021-03-22)
PROC: 5A1D70Z Performance of Urinary Filtration, Intermittent, Less than 6 Hours Per Day (ICD-10-PCS; 2021-03-23)
PROC: 5A1D70Z Performance of Urinary Filtration, Intermittent, Less than 6 Hours Per Day (ICD-10-PCS; 2021-03-24)
PROC: B32T1ZZ Computerized Tomography (CT Scan) of Left Pulmonary Artery using Low Osmolar Contrast (ICD-10-PCS; principal; 2021-03-25)
PROC: B3201ZZ Computerized Tomography (CT Scan) of Thoracic Aorta using Low Osmolar Contrast (ICD-10-PCS; 2021-03-25)
PROC: B32S1ZZ Computerized Tomography (CT Scan) of Right Pulmonary Artery using Low Osmolar Contrast (ICD-10-PCS; 2021-03-25)
PROC: 5A1D70Z Performance of Urinary Filtration, Intermittent, Less than 6 Hours Per Day (ICD-10-PCS; 2021-03-26)
PROC: 5A1D70Z Performance of Urinary Filtration, Intermittent, Less than 6 Hours Per Day (ICD-10-PCS; 2021-03-28)
DX: I26.99 Other pulmonary embolism without acute cor pulmonale (principal); N18.6 End stage renal disease; J18.9 Pneumonia, unspecified organism; I13.2 Hypertensive heart and chronic kidney disease with heart failure and with stage 5 chronic kidney disease, or end stage renal disease; N17.9 Acute kidney failure, unspecified; M86.171 Other acute osteomyelitis, right ankle and foot; G93.40 Encephalopathy, unspecified; N39.0 Urinary tract infection, site not specified; Z68.41 Body mass index [BMI] 40.0-44.9, adult; Z20.822 Contact with and (suspected) exposure to COVID-19; E78.00 Pure hypercholesterolemia, unspecified; E11.22 Type 2 diabetes mellitus with diabetic chronic kidney disease; M19.90 Unspecified osteoarthritis, unspecified site; F32.9 Major depressive disorder, single episode, unspecified; E66.01 Morbid (severe) obesity due to excess calories; E11.610 Type 2 diabetes mellitus with diabetic neuropathic arthropathy; I50.9 Heart failure, unspecified; E11.69 Type 2 diabetes mellitus with other specified complication; E78.5 Hyperlipidemia, unspecified; E11.65 Type 2 diabetes mellitus with hyperglycemia; E88.09 Other disorders of plasma-protein metabolism, not elsewhere classified; Z79.899 Other long term (current) drug therapy; Z79.4 Long term (current) use of insulin; Z99.2 Dependence on renal dialysis
CPT/HCPCS: 36415; 70450; 70496; 70498; 70544; 70551; 71045; 71275; 73620; 76937; 80053; 80061; 80202; 81001; 82728; 82948; 83036; 83540; 83550; 83605; 83615; 83735; 83880; 84100; 84145; 84443; 85007; 85025; 85027; 85379; 85384; 85610; 85730; 86140; 86885; 86900; 86901; 87040; 87081; 87088; 87340; 87635; 93005; 93306; 93970; 97110; 97161; 97530; 99285; C9803; G0257; G0378; J0456; J0692; J0696; J1200; J1644; J1650; J1815; J2543; J3370; J7030; Q0163; Q4081; Q9967